=== PATIENT | female | born 1960 | race Caucasian/White ===

== ENCOUNTER 2023-08-02 19:46 | Inpatient (IN) | payer BC ==
[~2023-08-02] VITALS: Ht 162.6 cm; Wt 80.7 kg
[2023-08-02 19:50] VITALS: BP 127/83; PULSE 98; RESP 22; TEMP 97.4; O2SAT 99
[2023-08-02] MEDS ORDERED: HYDROcodone/APAP 5/325 MG 1 TAB TAB PO ONE (22:55)
[2023-08-02 23:26] LABS: BASOPHILS # (AUTO) 0.1 K/uL (0.00-0.22); BASOPHILS % (AUTO) 0.7 % (0.0-2.0); EOSINOPHILS # (AUTO) 0.1 K/uL (0-0.4); EOSINOPHILS % (AUTO) 1.7 % (0.0-4.0); HEMATOCRIT 35.2 % (36-48); HEMOGLOBIN 11.6 g/dL (12.0-16.0); LYMPHOCYTES # (AUTO) 1.6 K/uL (2.5-16.5); LYMPHOCYTES % (AUTO) 19.6 % (20.5-51.1); MEAN CORPUSCULAR HEMOGLOBIN 31 pg (27-31); MEAN CORPUSCULAR HGB CONC 33 g/dL (33-37); MEAN CORPUSCULAR VOLUME 95.6 fL (80-94); MONOCYTES # (AUTO) 0.5 K/uL (0.8-1.0); MONOCYTES % (AUTO) 6.1 % (1.7-9.3); NEUTROPHILS % (AUTO) 71.9 % (42.2-75.2); PLATELET COUNT (AUTO) 228 K/uL (140-450); RED BLOOD CELL COUNT(AUTO) 3.68 MIL/uL (4.20-5.40); RED CELL DISTRIBUTION WIDTH 14.4 % (11.6-13.7); WHITE BLOOD COUNT (AUTO) 8.4 K/uL (4.8-10.8)
[2023-08-02 23:41] LABS: INR 0.9 (0.8-1.2); PROTHROMBIN TIME 9.5 secs (10.8-13.4)
[2023-08-02 23:48] LABS: ALKALINE PHOSPHATASE 257 U/L (50-136); ASPARTATE AMINOTRANSFERASE 41 U/L (15-37); BILIRUBIN,DIRECT 0.1 mg/dL (0.0-0.3); TOTAL BILIRUBIN 0.4 mg/dL (0.0-1.0)
[2023-08-02 23:49] LABS: ALANINE AMINOTRANSFERASE 43 U/L (12-78); ALBUMIN 2.3 g/dL (3.4-5.0); TOTAL PROTEIN, SERUM 7.3 g/dL (6.4-8.2)
[2023-08-03 00:06] LABS: ANION GAP 12.6 (8-16); CALCIUM 8.4 mg/dL (8.5-10.1); CARBON DIOXIDE 25.8 mmol/L (21-32); CREATININE 0.7 mg/dL (0.6-1.3); POTASSIUM 4.4 mmol/L (3.5-5.1)
[2023-08-03] MEDS ORDERED: KETOROLAC 30 MG/ML VIAL IVP ONE (01:30)
[2023-08-03] MEDS ORDERED: LAM200 PO (05:29)
[2023-08-03] MEDS ORDERED: GABA300C PO (05:29)
[2023-08-03] MEDS ORDERED: PHE25S RC (05:29)
[2023-08-03] MEDS ORDERED: ACETAMINOPHEN 325 MG TAB PO PRN (06:20)
[2023-08-03] MEDS ORDERED: ONDANSETRON 4 MG/2 ML VIAL IVP PRN (06:20)
[2023-08-03] MEDS ORDERED: DEXTROSE 50% 50 ML SYR IVP PRN (06:25)
[2023-08-03] MEDS ORDERED: INSULIN LISPRO SLIDING SCALE 100 UNITS/ML VIAL SUBQ PRN (06:25)
[2023-08-03] MEDS: BLOOD GLUCOSE MONITORING 1 DEV DEV FS SCH ×3 (07:45→21:00)
[2023-08-03] MEDS: HYDROcodone/APAP 5/325 MG 1 TAB TAB PO PRN ×2 (10:26→15:54)
[2023-08-03 20:38] VITALS: PULSE 78; O2SAT 97
[2023-08-03 21:50] VITALS: BP 130/85; PULSE 78; RESP 18; TEMP 98; O2SAT 97
[2023-08-03] MEDS: MORPHINE SULFATE 2 MG/ML SYR IVP PRN (21:53)
[2023-08-03] MEDS ORDERED: INSULIN LANTUS 100 UNITS/ML 10 ML VIAL SUBQ SCH (23:35)
[2023-08-04] MEDS: GABAPENTIN 300 MG CAP PO SCH ×2 (00:23→09:37)
[2023-08-04] MEDS: HYDROcodone/APAP 5/325 MG 1 TAB TAB PO PRN (01:15)
[2023-08-04] MEDS: MORPHINE SULFATE 2 MG/ML SYR IVP PRN ×4 (03:49→18:02)
[2023-08-04 04:48] LABS: BASOPHILS % (AUTO) 0.7 % (0.0-2.0); EOSINOPHILS # (AUTO) 0.1 K/uL (0-0.4); EOSINOPHILS % (AUTO) 1.2 % (0.0-4.0); HEMATOCRIT 30.9 % (36-48); HEMOGLOBIN 10.4 g/dL (12.0-16.0); LYMPHOCYTES # (AUTO) 1.8 K/uL (2.5-16.5); LYMPHOCYTES % (AUTO) 27.2 % (20.5-51.1); MEAN CORPUSCULAR HEMOGLOBIN 32 pg (27-31); MEAN CORPUSCULAR HGB CONC 34 g/dL (33-37); MEAN CORPUSCULAR VOLUME 93.9 fL (80-94); MONOCYTES # (AUTO) 0.5 K/uL (0.8-1.0); NEUTROPHILS % (AUTO) 62.9 % (42.2-75.2); PLATELET COUNT (AUTO) 209 K/uL (140-450); RED CELL DISTRIBUTION WIDTH 14.1 % (11.6-13.7); WHITE BLOOD COUNT (AUTO) 6.4 K/uL (4.8-10.8)
[2023-08-04 05:32] LABS: CARBON DIOXIDE 26.4 mmol/L (21-32); CREATININE 0.6 mg/dL (0.6-1.3); POTASSIUM 3.4 mmol/L (3.5-5.1)
[2023-08-04] MEDS: BLOOD GLUCOSE MONITORING 1 DEV DEV FS SCH ×3 (07:03→17:26)
[2023-08-04 08:00] VITALS: BP 117/68; PULSE 74; RESP 18; TEMP 97.6; O2SAT 96
[2023-08-04] MEDS ORDERED: INSULIN LANTUS 100 UNITS/ML 10 ML VIAL SUBQ SCH (09:43)
[2023-08-04] MEDS ORDERED: LIDOCAINE 5% 1 EA PATCH TP SCH (12:00)
[2023-08-04] MEDS ORDERED: POTASSIUM CHLORIDE 20 MEQ, LIDOCAINE MPF 1% 25 MG in NACL 0.9% 250 ML IV ONE (13:00)
[2023-08-04] MEDS ORDERED: ACET-1182 PO (15:46)
[2023-08-04] MEDS ORDERED: LID5T TP (15:46)
[2023-08-04 16:00] VITALS: BP 121/69; PULSE 76; RESP 18; TEMP 96.3; O2SAT 97
== END 2023-08-04 19:52 | disposition home or self-care (01) | DRG 206 ==
LOC: MED 19:46 → MTU 08-03 06:21
PROVIDERS: ADMIT Family Medicine; ATTEND Family Medicine
PROC: 0HQ0XZZ Repair Scalp Skin, External Approach (ICD-10-PCS; principal; 2022-08-03)
DX: S22.32XA Fracture of one rib, left side, initial encounter for closed fracture (principal); S22.21XA Fracture of manubrium, initial encounter for closed fracture; R91.8 Other nonspecific abnormal finding of lung field; F31.9 Bipolar disorder, unspecified; E11.9 Type 2 diabetes mellitus without complications; X58.XXXA Exposure to other specified factors, initial encounter; Z88.8 Allergy status to other drugs, medicaments and biological substances
CPT/HCPCS: 36415; 70450; 71250; 71260; 80048; 80076; 82948; 83880; 84484; 85025; 85610; 85730; 87081; 93005; 96374; 97116; 97163-GP; 99291; J1815; J1885; J2001; J2270; J3480; J7030; Q9967

== ENCOUNTER 2023-11-17 00:50 | Emergency (ER) | payer BC, OTHER ==
[~2023-11-17] VITALS: Ht 162.6 cm; Wt 72.6 kg
[~2023-11-17 00:50] MED LIST: ACET-1182 PO; GABA300C PO; LAM200 PO; LID5T TP; PHE25S RC
[2023-11-17 00:59] VITALS: BP 151/80; PULSE 84; RESP 16; TEMP 97.3; O2SAT 99
[2023-11-17 01:04] VITALS: BP 151/80; PULSE 84; RESP 16; TEMP 97.3; O2SAT 99
== END 2023-11-17 05:22 | disposition home or self-care (01) ==
LOC: MED 00:50
DX: S00.33XA Contusion of nose, initial encounter (principal); E11.9 Type 2 diabetes mellitus without complications; E03.9 Hypothyroidism, unspecified; F31.9 Bipolar disorder, unspecified; Z79.84 Long term (current) use of oral hypoglycemic drugs; Z79.899 Other long term (current) drug therapy; Z88.8 Allergy status to other drugs, medicaments and biological substances; W19.XXXA Unspecified fall, initial encounter; Y93.89 Activity, other specified; Y92.89 Other specified places as the place of occurrence of the external cause; Y99.8 Other external cause status
CPT/HCPCS: 70486; 99284